=== PATIENT | male | born 1990 | race African-American/Black ===

== ENCOUNTER 2025-03-03 02:26 | Emergency (ER) | payer OTHER ==
[~2025-03-03] VITALS: Ht 188 cm; Wt 114.0 kg
[~2025-03-03 02:26] MED LIST: ALBUTEROL
[2025-03-03 02:29] VITALS: O2SAT 98
[2025-03-03 03:49] LABS: BASOPHILS % 1.1 % (0.0-2.0); EOSINOPHILS % 3.4 % (0.0-5.0); HEMATOCRIT. 44.9 % (42.0-52.0); HEMOGLOBIN. 15.1 g/dL (14.0-18.0); LYMPHOCYTES % 31.1 % (20.0-50.0); MEAN PLATELET VOLUME 8.8 fl (7.4-10.4); MONOCYTES % 12.9 % (2.0-8.0); NEUTROPHILS % 51.5 % (40.0-76.0); PLATELET 370 x1000/uL (130-400); RED BLOOD CELL COUNT 4.65 mill/uL (4.7-6.1); RED CELL DISTRIBUTION WIDTH 13.5 % (11.6-14.6)
[2025-03-03 03:58] LABS: CLARITY URINE CLEAR (CLEAR); COLOR URINE DARK YELLOW (YELLOW); GLUCOSE URINE NEGATIVE (NEGATIVE); KETONES URINE TRACE (NEGATIVE); LEUKOCYTE ESTERASE URINE TRACE (NEGATIVE); NITRITE URINE NEGATIVE (NEGATIVE); OCCULT BLOOD URINE NEGATIVE (NEGATIVE); PH URINE 5.5 (4.5-8.0); PROTEIN URINE TRACE (NEGATIVE); SPECIFIC GRAVITY URINE 1.020 (1.005-1.030); UROBILINOGEN URINE 1.0 E.U./dL (0.2-1.0)
[2025-03-03 04:01] LABS: CREATININE 1.4 mg/dL (0.6-1.3); UREA NITROGEN BLOOD 9 mg/dL (9-23)
[2025-03-03 04:02] LABS: ETHANOL BLOOD < 10 mg/dL (<10)
[2025-03-03 04:03] LABS: ASPARTATE AMINOTRANSFERASE 26 IU/L (<34); BILIRUBIN DIRECT 0.4 mg/dL (<=3.0)
[2025-03-03 04:04] LABS: BILIRUBIN TOTAL 1.3 mg/dL (0.1-1.0); PROTEIN TOTAL 7.8 g/dL (6.0-8.3)
[2025-03-03 04:14] LABS: *AMPHETAMINES SCREEN URINE PRESUMPTIVE POSITIVE (NEGATIVE); *BENZODIAZEPINES SCREEN URINE NEGATIVE (NEGATIVE)
[2025-03-03 04:15] LABS: *BARBITURATES SCREEN URINE NEGATIVE (NEGATIVE); *COCAINE SCREEN URINE PRESUMPTIVE POSITIVE (NEGATIVE); CANNABINOID URINE SCREEN PRESUMPTIVE POSITIVE (NEGATIVE); ECSTASY MDMA SCREEN URINE CONF.TEST INDICATED (NEGATIVE); METHADONE URINE SCREEN NEGATIVE (NEGATIVE); OPIATES URINE SCREEN NEGATIVE (NEGATIVE); PHENCYCLIDINE URINE SCREEN NEGATIVE (NEGATIVE)
[2025-03-03 04:52] LABS: SQUAMOUS EPITHELIAL CELL URINE FEW /lpf (RARE/1+)
[2025-03-03 04:54] LABS: RBC URINE 0-2 /hpf (0-2)
[2025-03-03 04:55] LABS: BACTERIA URINE NONE SEEN; MUCUS URINE 1+ /lpf (NONE/TRACE)
[2025-03-03] MEDS: LORAZEPAM 2MG/ML UD SYRINGE IM NR (10:32)
[2025-03-03] MEDS: HALOPERIDOL LACTATE 5MG/ML VIAL IM NR (10:32)
[2025-03-03] MEDS: DIPHENHYDRAMINE 50MG/ML VIAL IM NR (10:32)
[2025-03-04 14:52] VITALS: BP 118/76; PULSE 82; RESP 18; TEMP 36.7; O2SAT 100
== END 2025-03-04 15:22 | disposition short-term general hospital (02) ==
LOC: ER 02:26
DX: F19.90 Other psychoactive substance use, unspecified, uncomplicated (principal); Z59.00 Homelessness unspecified; F12.90 Cannabis use, unspecified, uncomplicated; F31.9 Bipolar disorder, unspecified; F41.9 Anxiety disorder, unspecified; Z20.822 Contact with and (suspected) exposure to COVID-19; Z79.899 Other long term (current) drug therapy
CPT/HCPCS: 80076; 80305; 80048; 81003; 80307; 80329; 80320; 85025; 36415; 96372; 99285; 87426; J1200; J1630; J2060; Z7610; A4606; G0480